=== PATIENT | male | born 1980 | race Caucasian/White ===

== ENCOUNTER 2016-06-16 06:35 | Inpatient (IN) | payer OTHER ==
[2016-06-16] MEDS ORDERED: NEURONTIN 300300 MG PO (10:43)
[2016-06-16] MEDS ORDERED: SUBOXONE 8 MG-1 EACH SL (10:44)
[2016-06-16 14:00] LABS: HEMOGLOBIN 16.7 gm/dl (14.0-17.5); RED BLOOD COUNT 5.44 M/UL (4.20-5.50)
[2016-06-16 15:01] LABS: BUN/CREATININE RATIO 19 (0-10)
[2016-06-17 03:33] LABS: HEMOGLOBIN 14.6 gm/dl (14.0-17.5); RED BLOOD COUNT 4.86 M/UL (4.20-5.50); WHITE BLOOD COUNT 12.5 K/UL (4.5-11.0)
[2016-06-17 03:44] LABS: BUN/CREATININE RATIO 23 (0-10)
[2016-06-17] MEDS ORDERED: KEPPRA500 MG PO (14:03)
== END 2016-06-17 13:30 | disposition home or self-care (01) | DRG 101 ==
LOC: PROG CARE 09:21 → M/S 09:21 → PROG CARE 11:50
PROVIDERS: ADMIT Internal Medicine
DX: G40.89 Other seizures (principal); E87.2 Acidosis; I10 Essential (primary) hypertension; D75.1 Secondary polycythemia; F17.210 Nicotine dependence, cigarettes, uncomplicated; D72.829 Elevated white blood cell count, unspecified; T40.2X5A Adverse effect of other opioids, initial encounter; Z85.71 Personal history of Hodgkin lymphoma; Z82.49 Family history of ischemic heart disease and other diseases of the circulatory system
CPT/HCPCS: 36415; 80048; 80053; 83605; 83735; 85025; 85027; C9113; J2405; J7030